=== PATIENT | male | born 1950 | race Caucasian/White ===

== ENCOUNTER 2017-12-09 09:51 | Outpatient (CLI) | payer MEDICARE, BC ==
--- NOTE | 2017-12-09 11:11 | RAD ---
TWO VIEWS CHEST: Comparison: 10-22-11 History: Dyspnea. FINDINGS: Two views of the chest shows a normal sized cardiomediastinal silhouette with atherosclerotic calcifi cations seen in the aorta. There is no evidence of consolidation, mass or pleural effusion. There swathi ears to be multiple healed left rib fractures. IMPRESSION: No evidence of acute cardiopulmonary disease. POS: [facility]
== END 2017-12-09 09:52 | disposition home or self-care (01) ==
LOC: RAD 09:51
PROVIDERS: ATTEND Internal Medicine Critical Care Medicine
DX: R06.00 Dyspnea, unspecified (principal)
CPT/HCPCS: 71046

== ENCOUNTER 2017-12-16 08:39 | Outpatient (CLI) | payer MEDICARE, BC ==
--- NOTE | 2017-12-16 10:33 | CT ---
CT CHEST NONCONTRAST: History: Left lateral chest wall mass/herniation. Comparison: 06-13-13 FINDINGS: Lungs remain hyperinflated with scattered bullae. Tiny subpleural nodules within the right lung are s table. No pleural fluid or pneumothorax. There is calcification within the coronary arteries. Lack of contrast limits evaluation of the soft tissues. No bulky adenopathy of the mediastinum. Withi n the partially visualized upper abdomen, there is hazy opacity centrally within the mesenteric fat t hat is similar to the previous exam. Circumaortic left renal vein is partially visualized. Abdominal fat protrudes under the lateral margin of the left lower ribs. The overlying oblique abdominal wall m usculature remains intact. Peritoneum is not dilated. Old healed and ununited left rib fractures are similar in appearance to the previous exam. IMPRESSION: 1. Area of protrusion at the left lateral lower chest represents a focal eventration of the abdominal wall, measuring up to 11.9 cm in length, slightly larger than on the prior CT from 2014. A true long iation is not evident. 2. COPD. Tiny pulmonary nodules are stable. 3. Atherosclerosis. POS: [facility]
== END 2017-12-16 08:40 | disposition home or self-care (01) ==
LOC: BICCT 08:39
PROVIDERS: ATTEND Internal Medicine Critical Care Medicine
DX: K40.90 Unilateral inguinal hernia, without obstruction or gangrene, not specified as recurrent (principal); J44.9 Chronic obstructive pulmonary disease, unspecified; R91.8 Other nonspecific abnormal finding of lung field; I25.10 Atherosclerotic heart disease of native coronary artery without angina pectoris
CPT/HCPCS: 71250

== ENCOUNTER 2018-05-21 09:28 | Outpatient (CLI) | payer MEDICARE, BC ==
--- NOTE | 2018-05-21 10:02 | RAD ---
RADIOGRAPH CHEST 2 VIEWS: HISTORY: A 67-year-old male with cough and dyspnea. FINDINGS: There is no air space density, pulmonary edema, pleural effusion, pneumothorax, or cardiomegaly. The re are old left lateral rib fracture deformities. IMPRESSION: 1. No acute cardiopulmonary findings. 2. Old, traumatic, healed left rib fracture deformities. delvis Marie POS: [facility]
== END 2018-05-21 09:29 | disposition home or self-care (01) ==
LOC: BICRAD 09:28
PROVIDERS: ATTEND Physician Assistant
DX: R06.02 Shortness of breath (principal); R05 Cough; Z87.81 Personal history of (healed) traumatic fracture
CPT/HCPCS: 71046

== ENCOUNTER 2020-05-15 15:22 | Outpatient (CLI) | payer OTHER, MEDICARE | END 2020-05-15 15:23 | disposition home or self-care (01) | LOC: BICRAD 15:22 | PROVIDERS: ATTEND Family Medicine | DX: S40.011A Contusion of right shoulder, initial encounter (principal); M19.011 Primary osteoarthritis, right shoulder ==

== ENCOUNTER 2024-03-08 11:45 | Outpatient (CLI) | payer OTHER | END 2024-03-08 11:46 | disposition home or self-care (01) | LOC: BICRAD 11:45 | PROVIDERS: ATTEND Nurse Practitioner Family | DX: M25.562 Pain in left knee (principal); M17.12 Unilateral primary osteoarthritis, left knee ==

== ENCOUNTER 2024-03-22 07:13 | Outpatient (CLI) | payer OTHER | END 2024-03-22 07:14 | disposition home or self-care (01) | LOC: BICMRI 07:13 | PROVIDERS: ATTEND Nurse Practitioner Family | DX: M25.562 Pain in left knee (principal); M23.304 Other meniscus derangements, unspecified medial meniscus, left knee; S83.232A Complex tear of medial meniscus, current injury, left knee, initial encounter; S83.282A Other tear of lateral meniscus, current injury, left knee, initial encounter; M25.462 Effusion, left knee; M65.88 Other synovitis and tenosynovitis, other site ==